=== PATIENT | female | born 1945 | race Caucasian/White ===

== ENCOUNTER 2019-09-07 18:13 | Emergency (ER) | payer MEDICARE ==
[2019-09-07] MEDS ORDERED: Sodium Chloride 0.9% 10 ML Syringe FLUSH PRN (18:35)
[2019-09-07] MEDS ORDERED: Morphine 2 MG/ML SYRINGE IVPUSH STA (18:38)
[2019-09-07] MEDS ORDERED: Ketorolac 30 MG/ML SDV IVPUSH STA (18:38)
[2019-09-07] MEDS ORDERED: Sodium Chloride 0.9% 1,000 ML IV SCH ×2 (18:45→20:30)
[2019-09-07] MEDS ORDERED: Iopamidol 755 Mg/ML 100 ML Bottle IV ONE (19:19)
[2019-09-07] MEDS ORDERED: Piperacillin/Tazobactam 4.5 GM in Sodium Chloride 0.9% 100 ML IV SCH (20:30)
[2019-09-07] MEDS ORDERED: Piperacillin/Tazobactam 4.5 GM in Sodium Chloride 0.9% 100 ML IV ONE (20:31)
--- NOTE | 2019-09-07 20:36 | EDM.PDOC ---
ED HPI GENERAL MEDICAL PROBLEM - General Chief Complaint: Abdominal Pain Stated Complaint: STOMACH PAIN Time Seen by Provider: 09/07/19 18:15 Source of Information: Reports: Patient History Limitations: Reports: No Limitations - History of Present Illness INITIAL COMMENTS - FREE TEXT/NARRATIVE: Patient presented to the ED because of abdominal pain which started last night and gradually got worse today. The pain is sharp and cramping,10/10. There is no associated, N/V/D no fever or chills. There is no changes in bowel movements or urinary symptoms. 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 Bilateral Lower Abdomen Pain Score (Numeric/FACES): 8 - Related Data Allergies Allergy/AdvReac Type Severity Reaction Status Date / Time No Known Allergies Allergy Verified 09/07/19 18:16 Home Meds: Home Meds NK [No Known Home Meds] 09/07/19 [History] Past Medical History Gastrointestinal History: Reports: Other (See Below) Other Gastrointestinal History: reports hx of constipation at times; takes a probiotic daily Social & Family History - Tobacco Use Smoking Status *Q: Former Smoker Used Tobacco, but Quit: Yes Month/Year Tobacco Last Used: 1973 - Caffeine Use Caffeine Use: Reports: Coffee Caffeine Use Comment: 1-2 cups a day - Recreational Drug Use Recreational Drug Use: No ED ROS GENERAL - Review of Systems Review Of Systems: See Below Constitutional: Reports: No Symptoms HEENT: Reports: No Symptoms Respiratory: Reports: No Symptoms Cardiovascular: Reports: No Symptoms Endocrine: Reports: No Symptoms GI/Abdominal: Reports: Abdominal Pain : Reports: No Symptoms Musculoskeletal: Reports: No Symptoms Skin: Reports: No Symptoms Neurological: Reports: No Symptoms Psychiatric: Reports: No Symptoms Hematologic/Lymphatic: Reports: No Symptoms ED EXAM, GI/ABD - Physical Exam Exam: See Below Exam Limited By: No Limitations General Appearance: Alert, No Apparent Distress Ears: Normal External Exam, Normal Canal Nose: Normal Inspection, Normal Mucosa Throat/Mouth: Normal Inspection, Normal Lips Neck: Normal Inspection, Supple, Non-Tender Respiratory/Chest: No Respiratory Distress, Lungs Clear Cardiovascular: Normal Peripheral Pulses GI/Abdominal Exam: Soft, Other (tenderness over the LLQ and RLQ). No: Guarding Back Exam: Normal Inspection Extremities: Normal Inspection Course - Vital Signs Text/Narrative:: Labs/CT abd/pelvis wqas discussed with patient and verbalized full understanding NS 1 L bolus morphine 2 mg IV x1 toradol 15 mg IV x1 Zosyn 4.5 gm IV 1 Will be transferred to [facility] Code Status: DNR/DNI Case is discussed with Dr Zarate Last Recorded V/S: Last Vital Signs Temp 36.8 C 09/07/19 18:15 Pulse 94 09/07/19 18:15 Resp 20 09/07/19 18:15 BP 158/82 H 09/07/19 18:15 Pulse Ox 95 09/07/19 18:15 - Orders/Labs/Meds Orders: Active Orders 24 hr Category Date Time Status Abdomen Pelvis w Cont [CT] Stat Exams 09/07/19 18:40 Taken Piperacillin/Tazobactam [Zosyn] 4.5 gm Med 09/07/19 20:31 Active Sodium Chloride 0.9% [Normal Saline] 100 ml IV ONETIME Sodium Chloride 0.9% [Normal Saline] 1,000 ml Med 09/07/19 18:45 Active IV ASDIRECTED Sodium Chloride 0.9% [Normal Saline] 1,000 ml Med 09/07/19 20:30 Ordered IV ASDIRECTED Sodium Chloride 0.9% [Saline Flush] Med 09/07/19 18:35 Active 10 ml FLUSH ASDIRECTED PRN Saline Lock Insert [OM.PC] Routine Oth 09/07/19 18:35 Ordered Medication Orders Sodium Chloride (Normal Saline) 1,000 mls @ 999 mls/hr IV ASDIRECTED MOIRA Last Admin: 09/07/19 19:08 Dose: 999 mls/hr Sodium Chloride (Normal Saline) 1,000 mls @ 125 mls/hr IV ASDIRECTED MOIRA Piperacillin Sod/Tazobactam (Sod 4.5 gm/ Sodium Chloride) 100 mls @ 200 mls/hr IV ONETIME ONE Stop: 09/07/19 21:00 Last Admin: 09/07/19 20:40 Dose: 200 mls/hr Sodium Chloride (Saline Flush) 10 ml FLUSH ASDIRECTED PRN PRN Reason: Keep Vein Open Last Admin: 09/07/19 19:09 Dose: 10 ml Labs: Laboratory Tests 09/07/19 09/07/19 09/07/19 Range/Units 18:52 18:55 18:55 WBC 11.4 (4.5-12.0) X10-3/uL RBC 5.02 (3.23-5.20) x10(6)uL Hgb 15.4 (11.5-15.5) g/dL Hct 46.5 (30.0-51.3) % MCV 92.7 (80-96) fL MCH 30.7 (27.7-33.6) pg MCHC 33.2 (32.2-35.4) g/dL RDW 12.8 (11.5-15.5) % Plt Count 276 (125-369) X10(3)uL MPV 8.4 (7.4-10.4) fL Add Manual Diff Yes Neutrophils % (Manual) 81 (46-82) % Band Neutrophils % 4 (0-6) % Lymphocytes % (Manual) 10 L (13-37) % Monocytes % (Manual) 5 (4-12) % Sodium 141 (135-145) mmol/L Potassium 4.5 (3.5-5.3) mmol/L Chloride 104 (100-110) mmol/L Carbon Dioxide 23 (21-32) mmol/L BUN 16 (7-18) mg/dL Creatinine 1.1 H (0.55-1.02) mg/dL Est Cr Clr Drug Dosing TNP Estimated GFR (MDRD) 49 L (>60) BUN/Creatinine Ratio 14.5 (9-20) Glucose 143 H (80-116) mg/dL Calcium 9.3 (8.6-10.2) mg/dL Total Bilirubin 0.6 (0.1-1.3) mg/dL AST 17 (5-25) IU/L ALT 25 (12-36) U/L Alkaline Phosphatase 142 H (56-112) IU/L Total Protein 7.4 (6.0-8.0) g/dL Albumin 3.5 (3.2-4.6) g/dL Globulin 3.9 g/dL Albumin/Globulin Ratio 0.9 Amylase 44 (25-115) U/L Lipase (73-393) U/L Urine Color Yellow (YELLOW) Urine Appearance Slightly cloudy (CLEAR) Urine pH 5.0 (5.0-6.5) Ur Specific Emma 1.030 H (1.010-1.025) Urine Protein Negative (NEGATIVE) mg/dL Urine Glucose (UA) Normal (NORMAL) mg/dL Urine Ketones Negative (NEGATIVE) mg/dL Urine Occult Blood Negative (NEGATIVE) Urine Nitrite Negative (NEGATIVE) Urine Bilirubin Negative (NEGATIVE) Urine Urobilinogen Normal (NEGATIVE) mg/dL Ur Leukocyte Esterase Negative (NEGATIVE) Urine RBC 0-5 (0-5) Urine WBC 0-5 (0-5) Ur Squamous Epith Cells Few H (NS,R,O) Urine Bacteria Few H (NS) Urine Mucus Few H (NS) 09/07/19 Range/Units 18:55 WBC (4.5-12.0) X10-3/uL RBC (3.23-5.20) x10(6)uL Hgb (11.5-15.5) g/dL Hct (30.0-51.3) % MCV (80-96) fL MCH (27.7-33.6) pg MCHC (32.2-35.4) g/dL RDW (11.5-15.5) % Plt Count (125-369) X10(3)uL MPV (7.4-10.4) fL Add Manual Diff Neutrophils % (Manual) (46-82) % Band Neutrophils % (0-6) % Lymphocytes % (Manual) (13-37) % Monocytes % (Manual) (4-12) % Sodium (135-145) mmol/L Potassium (3.5-5.3) mmol/L Chloride (100-110) mmol/L Carbon Dioxide (21-32) mmol/L BUN (7-18) mg/dL Creatinine (0.55-1.02) mg/dL Est Cr Clr Drug Dosing Estimated GFR (MDRD) (>60) BUN/Creatinine Ratio (9-20) Glucose (80-116) mg/dL Calcium (8.6-10.2) mg/dL Total Bilirubin (0.1-1.3) mg/dL AST (5-25) IU/L ALT (12-36) U/L Alkaline Phosphatase (56-112) IU/L Total Protein (6.0-8.0) g/dL Albumin (3.2-4.6) g/dL Globulin g/dL Albumin/Globulin Ratio Amylase (25-115) U/L Lipase 74 (73-393) U/L Urine Color (YELLOW) Urine Appearance (CLEAR) Urine pH (5.0-6.5) Ur Specific Emma (1.010-1.025) Urine Protein (NEGATIVE) mg/dL Urine Glucose (UA) (NORMAL) mg/dL Urine Ketones (NEGATIVE) mg/dL Urine Occult Blood (NEGATIVE) Urine Nitrite (NEGATIVE) Urine Bilirubin (NEGATIVE) Urine Urobilinogen (NEGATIVE) mg/dL Ur Leukocyte Esterase (NEGATIVE) Urine RBC (0-5) Urine WBC (0-5) Ur Squamous Epith Cells (NS,R,O) Urine Bacteria (NS) Urine Mucus (NS) Meds: Medications Generic Name Dose Route Start Last Admin Trade Name Freq PRN Reason Stop Dose Admin Sodium Chloride 1,000 mls @ 999 mls/hr 09/07/19 18:45 09/07/19 19:08 Normal Saline IV 999 mls/hr ASDIRECTED MOIRA Administration Sodium Chloride 1,000 mls @ 125 mls/hr 09/07/19 20:30 Normal Saline IV ASDIRECTED MOIRA Piperacillin Sod/Tazobactam 100 mls @ 200 mls/hr 09/07/19 20:31 09/07/19 20: 40 Sod 4.5 gm/ Sodium Chloride IV 09/07/19 21:00 200 mls/hr ONETIME ONE Administration Sodium Chloride 10 ml 09/07/19 18:35 09/07/19 19:09 Saline Flush FLUSH 10 ml ASDIRECTED PRN Administration Keep Vein Open Discontinued Medications Generic Name Dose Route Start Last Admin Trade Name Freq PRN Reason Stop Dose Admin Piperacillin Sod/Tazobactam 100 mls @ 200 mls/hr 09/07/19 20:30 Sod 4.5 gm/ Sodium Chloride IV Q6H MOIRA Iopamidol 100 ml 09/07/19 19:19 09/07/19 19:43 Isovue-370 (76%) IV 09/07/19 19:20 100 ml . DIRECTED ONE Administration Ketorolac Tromethamine 15 mg 09/07/19 18:38 09/07/19 19:20 Toradol IVPUSH 09/07/19 18:39 15 mg NOW STA Administration Morphine Sulfate 2 mg 09/07/19 18:38 09/07/19 19:23 Morphine IVPUSH 09/07/19 18:39 2 mg NOW STA Administration Departure - Departure Time of Disposition: 20:36 Disposition: DC/Tfer to Acute Hospital 02 Condition: Good Clinical Impression: Diverticulitis of both large and small intestine with perforation - Discharge Information Referrals: PCP,None [Primary Care Provider] - Forms: ED Department Discharge Sepsis Event Note - Evaluation Sepsis Screening Result: No Definite Risk - Focused Exam Vital Signs: Vital Signs Temp Temp Pulse Resp BP Pulse Ox 09/07/19 18:15 36.8 C 36.8 C 94 20 158/82 H 95 Date Exam was Performed: 09/07/19 Time Exam was Performed: 20:41 - My Orders Last 24 Hours: My Active Orders 09/07/19 18:35 Sodium Chloride 0.9% [Saline Flush] 10 ml FLUSH ASDIRECTED PRN Saline Lock Insert [OM.PC] Routine 09/07/19 18:40 Abdomen Pelvis w Cont [CT] Stat 09/07/19 18:45 Sodium Chloride 0.9% [Normal Saline] 1,000 ml IV ASDIRECTED 09/07/19 20:30 Sodium Chloride 0.9% [Normal Saline] 1,000 ml IV ASDIRECTED 09/07/19 20:31 Piperacillin/Tazobactam [Zosyn] 4.5 gm Sodium Chloride 0.9% [Normal Saline] 100 ml IV ONETIME - Assessment/Plan Last 24 Hours: My Active Orders 09/07/19 18:35 Sodium Chloride 0.9% [Saline Flush] 10 ml FLUSH ASDIRECTED PRN Saline Lock Insert [OM.PC] Routine 09/07/19 18:40 Abdomen Pelvis w Cont [CT] Stat 09/07/19 18:45 Sodium Chloride 0.9% [Normal Saline] 1,000 ml IV ASDIRECTED 09/07/19 20:30 Sodium Chloride 0.9% [Normal Saline] 1,000 ml IV ASDIRECTED 09/07/19 20:31 Piperacillin/Tazobactam [Zosyn] 4.5 gm Sodium Chloride 0.9% [Normal Saline] 100 ml IV ONETIME
== END 2019-09-07 21:34 ==
LOC: FB.ED 18:13
DX: K57.40 Diverticulitis of both small and large intestine with perforation and abscess without bleeding (principal); Z87.891 Personal history of nicotine dependence
CPT/HCPCS: 36415; 74177; 80053; 81001; 82150; 83690; 85025; 96361; 96365; 96375; 99285; J1885; J2270; J2543; J7030; J7050; Q9967